=== PATIENT | male | born 1955 | race Caucasian/White ===

== ENCOUNTER 2018-09-10 00:28 | Inpatient (IN) | payer OTHER ==
[2018-09-10] MEDS ORDERED: Sodium Chloride 0.9% 1,000 ML ONE (01:09)
[2018-09-10 01:13] LABS: BASO % 0.6 % (0.0-2.0); EOS # 0.2 K/uL (0.0-0.7); EOS % 2.2 % (0.0-4.0); HEMOGLOBIN 12.7 g/dL (12.0-18.0); LYMPH % 13.2 % (20.0-40.0); MEAN CELL VOLUME 93.4 fL (80.0-94.0); MEAN CORPUSCULAR HEMOGLOBIN 30.7 pg (27.0-31.0); MEAN CORPUSCULAR HGB CONC 32.9 g/dL (33.0-37.0); MEAN PLATELET VOLUME 8.1 fL (7.2-11.7); MONO # 0.5 K/uL (0.0-0.8); MONO % 6.7 % (0.0-10.0); NEUT # 5.9 K/uL (1.8-7.0); NEUT % 77.3 % (50.0-75.0); RBC 4.13 Mil/uL (4.40-5.90); RED CELL DISTRIBUTION WIDTH 13.5 % (11.5-14.5); WHITE BLOOD COUNT 7.6 K/uL (4.8-10.8)
[2018-09-10] MEDS: Sodium Chloride 0.9% 1,000 ML IV SCH ×4 (01:14→21:29)
[2018-09-10 01:20] LABS: ALB/GLOB RATIO 1.4 (1.0-2.1); ALBUMIN 4.3 g/dL (3.5-5.0); ALT/SGPT 12 U/L (21-72); AST/SGOT 29 U/L (17-59); BLOOD UREA NITROGEN 22 mg/dL (9-20); CALCIUM 9.2 mg/dl (8.6-10.4); GFR NON-AFRICAN AMERICAN > 60; LIPASE 69 U/L (23-300)
--- NOTE | 2018-09-10 01:23 | C.PDOC ---
History Of Present Illness 63 year old male w/ hx of pleural effusion, p/w vomiting. Pt notes vomiting x4 times today. He also notes that 1 week prior he started having flashing lights in both of his eyes. He notes that the flashing light resolved on its own after lasting 1-2 seconds. He notes that the last time he had the same flashing light he had a pleural effusion which was drained which resolved his symptoms. He notes these flashing lights even when he closes his eyes. No temporal pain or decreased vision field or eye pain. No loss of visual acuity. No eye medications per pt. He also notes that he had a spinal tap which did not show any findings. He notes the same exact symptoms and is concerned that he could have a reoccurrence of his pleural effusion. He denies any abdominal pain, chest pain or shortness of breath. No trauma or fall. No night sweats, fevers, or chills. No cough. Time Seen by Provider: 09/10/18 00:41 Chief Complaint (Nursing): GI Problem Past Medical History Vital Signs: Last Vital Signs Temp 97.8 F 09/10/18 00:39 Pulse 75 09/10/18 00:39 Resp 16 09/10/18 00:39 BP 144/91 H 09/10/18 00:39 Pulse Ox 97 09/10/18 00:39 - Medical History PMH: Migraine Family History: States: Unknown Family Hx - Social History Hx Alcohol Use: No Hx Substance Use: No - Immunization History Hx Tetanus Toxoid Vaccination: Yes Hx Influenza Vaccination: Yes Hx Pneumococcal Vaccination: Yes Review Of Systems Constitutional: Negative for: Fever, Chills, Sweats, Weakness, Malaise Eyes: Positive for: Other (flashing lights 1-2 times a day for 1-2 seconds). Negative for: Pain, Vision Change, Conjunctivae Inflammation, Eyelid Inflammation ENT: Negative for: Ear Pain, Ear Discharge, Nose Pain, Nose Congestion Cardiovascular: Negative for: Chest Pain, Palpitations, Orthopnea Respiratory: Negative for: Cough, Shortness of Breath, Hemoptysis, Pleuritic Pain, Sputum, Wheezing Gastrointestinal: Positive for: Nausea, Vomiting. Negative for: Abdominal Pain, Diarrhea, Constipation, Melena, Hematochezia, Hematemesis, Rectal Pain Genitourinary: Negative for: Dysuria, Frequency, Incontinence, Hematuria Musculoskeletal: Negative for: Neck Pain, Shoulder Pain, Arm Pain Skin: Negative for: Rash, Lesions, Jaundice Neurological: Positive for: Headache (mild, not worst of life, not sudden in onset, associated with flashing lights when it occurs). Negative for: Weakness, Numbness, Incoordination, Change in Speech, Confusion, Seizures, Altered Mental Status Psych: Negative for: Anxiety Physical Exam - Physical Exam Appears: Well, Non-toxic, No Acute Distress Skin: Normal Color, Warm, Dry Head: Atraumatic, Normacephalic, No Tenderness, No Swelling, No Abrasion, No Laceration Eye(s): bilateral: Normal Inspection, PERRL, EOMI Ear(s): Bilateral: Normal Nose: Normal, No Flaring, No Discharge, No Epistaxis, No Deformity, No Septal Hematoma Oral Mucosa: Moist Tongue: Normal Appearing, No Swelling, No Lesions, No Bite Lips: Normal Appearing Teeth: No Caries, No Edentulous Gingiva: Normal Appearing Throat: Normal, No Erythema, No Exudate Neck: Normal, Normal ROM, Supple, Other (no meningeal signs) Chest: Symmetrical, No Deformity, No Tenderness Cardiovascular: Rhythm Regular Respiratory: Decreased Breath Sounds (R base), No Accessory Muscle Use, No Rales, No Rhonchi, No Stridor, No Wheezing, No Plerual Rub Gastrointestinal/Abdominal: Normal Exam Back: Normal Inspection, No CVA Tenderness, No Vertebral Tenderness Male Genital: Normal Inspection Extremity: Normal ROM, No Tenderness, No Pedal Edema Extremity: Bilateral: Atraumatic Neurological/Psych: Oriented x3, Normal Speech, Normal Cognition, Normal Cranial Nerves, No Cerebellar Signs, Normal Motor, Normal Sensation Gait: Steady Other Neurological Findings: No Facial Palsy Extremity: Right: No Drift, Left: No Drift ED Course And Treatment - Laboratory Results Result Diagrams: 09/10/18 01:03 09/10/18 01:03 O2 Sat by Pulse Oximetry: 97 Medical Decision Making Medical Decision Makin yr old male w/ hx of pleural effusion p/w flashing lights, headache (not worst of life or sudden in onset). Neuro exam unremarkable. No abdominal complaints. Non-ttp. ?atypical migraine vs tension migraine. No temporal pain. No loss of field of vision. No eye pain. No eye trauma or new eye meds. No visual acuity change. PERRLA, EOMI. No neuro deficits noted on exam. Pending imaging and labs. 0154 Labs largely unremarkable pending imaging CT Head w/o Contrast: IMPRESSION: Normal unenhanced CT scan of the brain. 1.9x1.1 cm cystic area of the pituitary gland with expansion of the sella and extension to the supra-sellar cistern. Findings can be secondary to an empty sella turcica. Differential diagnosis would include a cystic pituitary macroadenoma. This can be better evaluated by means of a dedicated MRI of the brain/sella with intravenous administration of gadolinium on elective basis. There is no evidence of associated acute brain changes or pituitary hemorrhage. EK, NSR. No stemi CXR w/ moderate R sided pleural effusion 0245 Neuro exam, abd exam remains unremarkable Will reccomend obs for R sided pleural effusion. pt agreeable to plan. 0303 appreciate consult w/ Dr. Cheney: to admit to tele Pt agreeable to plan, in NAD. Disposition - Disposition Referrals: [facility] [Outside] [facility] [Outside] [facility] [Outside] Edwin Albert MD [Staff Provider] - Disposition: HOME/ ROUTINE Disposition Time: 02:48 Condition: GOOD Additional Instructions: FOLLOW UP WITH NEUROLOGY REGARDING YOUR CT FINDINGS. RETURN IF WORSENED AND IF ANY OTHER ISSUES RABIA SHERIFF, thank you for letting us take care of you today. Your provider was Emeterio Diaz and you were treated for VOMITING. The emergency medical care you received today was directed at your acute symptoms. If you were prescribed any medication, please fill it and take as directed. It may take several days for your symptoms to resolve. Return to the Emergency Department if your symptoms worsen, do not improve, or if you have any other problems. Please contact your doctor or call one of the physicians/clinics you have been referred to that are listed on the Patient Visit Information form that is included in your discharge packet. Bring any paperwork you were given at discharge with you along with any medications you are taking to your follow up visit. Our treatment cannot replace ongoing medical care by a primary care provider outside of the emergency department. Thank you for allowing the [facility] team to be part of your care today. If you had an X-Ray or CT scan: A Radiologist will review the ED reading if any change in treatment is needed we will contact you. If you had a blood, urine, or wound culture: It will take several days for the results, if any change in treatment is needed we will contact you. If you had an STI test: It will take 48 hours for the results. Please call after 1 week if you have not heard back. Forms: [facility] ([facility]) - Clinical Impression Clinical Impression: Cyst of pituitary gland, Headache, Pleural effusion
[2018-09-10 01:27] LABS: VENOUS BLOOD GAS BASE EXCESS 1.5 mmol/L (0.0-2.0); VENOUS BLOOD GAS PCO2 54 mmHg (40-60); VENOUS BLOOD GAS PO2 29 mm/Hg (30-55); VENOUS BLOOD PH 7.33 (7.32-7.43)
[2018-09-10] MEDS ORDERED: Azithromycin 500 MG in Sodium Chloride 0.9% 250 ML IVPB STA (03:05)
--- NOTE | 2018-09-10 09:51 | CP.PCM.PN ---
Subjective - Date & Time of Evaluation Date of Evaluation: 09/10/18 Time of Evaluation: 09:51 - Subjective Subjective: H&P dictated #[id number] Objective - Vital Signs/Intake and Output Vital Signs (last 24 hours): Temp Pulse Resp BP Pulse Ox 98.1 F 63 20 116/72 95 09/10/18 07:00 09/10/18 07:00 09/10/18 07:00 09/10/18 07:00 09/10/18 07:00 - Medications Medications: Current Medications Sodium Chloride (Sodium Chloride 0.9%) 1,000 mls @ 100 mls/hr IV .Q10H [facility] Last Admin: 09/10/18 04:55 Dose: 100 mls/hr - Labs Labs: 09/10/18 01:03 09/10/18 01:03
--- NOTE | 2018-09-10 10:43 | CT ---
Date of service: 09/10/2018 PROCEDURE: CT HEAD WITHOUT CONTRAST. HISTORY: Headache COMPARISON: None available. TECHNIQUE: Axial computed tomography images were obtained through the head/brain without intravenous contrast. Radiation dose: Total exam DLP = 1035.32 mGy-cm. This CT exam was performed using one or more of the following dose reduction techniques: Automated exposure control, adjustment of the mA and/or kV according to patient size, and/or use of iterative reconstruction technique. FINDINGS: HEMORRHAGE: No acute parenchymal, subarachnoid nor extra-axial hemorrhage. BRAIN: No evidence of large acute infarct. There is an elliptical approximately 17.1 x 10.5 mm shaped cystic lesion which occupies the anterior aspect of the sella turcica. There appears to be expansile changes of the sella turcica as well turcica. This cystic lesion also appears to elevate superiorly displaces the optic chiasm.. Findings are of uncertain etiology however consider cystic adenoma Rathke's cleft cyst or possibly craniopharyngioma. Follow-up of pre and post-contrast MRI of the brain recommended for further evaluation there an 18.6 x 12.2 mm elliptical shaped calcification seen in the right parasagittal posterior occipito parietal watershed zone that may simply represent a dural based calcification however possibility of a calcified meningioma not completely excluded VENTRICLES: No obstructive hydrocephalus. CALVARIUM: Unremarkable. PARANASAL SINUSES: Mucoperiosteal inflammatory changes within the ethmoid air complex extending superiorly into the frontal sinus noted. MASTOID AIR CELLS: The there is partial opacification of the left and to a lesser degree right mastoid air complexes. OTHER FINDINGS: None. IMPRESSION: No evidence of large acute infarct. There is an elliptical approximately 17.1 x 10.5 mm shaped cystic lesion which occupies the anterior aspect of the sella turcica. There appears to be expansile changes of the sella turcica as well turcica. This cystic lesion also appears to elevate superiorly displaces the optic chiasm.. Findings are of uncertain etiology however consider cystic adenoma Rathke's cleft cyst or possibly craniopharyngioma. Follow-up of pre and post-contrast MRI of the brain recommended for further evaluation there an 18.6 x 12.2 mm elliptical shaped calcification seen in the right parasagittal posterior occipito parietal watershed zone that may simply represent a dural based calcification however possibility of a calcified meningioma not completely excluded
--- NOTE | 2018-09-10 15:36 | RAD ---
Date of service: 09/10/2018 HISTORY: History of pleural effusion COMPARISON: No prior. TECHNIQUE: Chest PA and lateral FINDINGS: LUNGS: There is a semi lunar shaped opacity the right CP angle region and lateral lower right hemithorax could represent a effusion with loculated component. Suspect mild right basilar atelectasis. Mild biapical pleural thickening. PLEURA: As above. No pneumothorax apparent. CARDIOVASCULAR: No aortic atherosclerotic calcification present. Aorta appears ectatic and uncoiled. Normal cardiac size. No pulmonary vascular congestion. OSSEOUS STRUCTURES: No significant abnormalities. VISUALIZED UPPER ABDOMEN: Normal. OTHER FINDINGS: None. IMPRESSION: There is a semi lunar shaped opacity the right CP angle region and lateral lower right hemithorax could represent a effusion with loculated component. Suspect mild right basilar atelectasis. Mild biapical pleural thickening
--- NOTE | 2018-09-10 16:31 | CP.PCM.CON ---
History of Present Illness - History of Present Illness History of Present Illness: Reason for consultation: Pleural effusion 63-year-old male with history of pulmonary TB and pleural effusion status post thoracentesis and treated for 9 months in 1994 presented with vomiting and flashing lights in both of his eyes. Denies shortness of breath, denies cough, denies fever chills, denies night sweats, denies weight loss. Review of Systems - Review of Systems All systems: reviewed and no additional remarkable complaints except (Vomiting) Past Patient History - Past Social History Smoking Status: Former Smoker - PULMONARY Other/Comment: pleural effusion - NEUROLOGICAL Hx Migraine: Yes - HEENT Hx Cataracts: Yes (RIGHT EYE -NO SURGERY YET) Hx Sinusitis: Yes Other/Comment: LEFT EYE-LAZY EYE - MUSCULOSKELETAL/RHEUMATOLOGICAL Hx Falls: No - PSYCHIATRIC Hx Substance Use: No - SURGICAL HISTORY Other/Comment: nasal septal sx - ANESTHESIA Hx Anesthesia: Yes Hx Anesthesia Reactions: No Meds Allergies/Adverse Reactions: Allergies Allergy/AdvReac Type Severity Reaction Status Date / Time No Known Allergies Allergy Unverified 09/10/18 00:44 - Medications Medications: Current Medications Heparin Sodium (Porcine) (Heparin) 5,000 units SC Q12 [facility] Last Admin: 09/10/18 11:00 Dose: 5,000 units Sodium Chloride (Sodium Chloride 0.9%) 1,000 mls @ 100 mls/hr IV .Q10H [facility] Last Admin: 09/10/18 04:55 Dose: 100 mls/hr Ondansetron HCl (Zofran Inj) 4 mg IVP ONCE ONE Stop: 09/10/18 16:31 Physical Exam - Head Exam Head Exam: ATRAUMATIC, NORMOCEPHALIC - ENT Exam ENT Exam: Mucous Membranes Moist - Neck Exam Neck exam: Positive for: Normal Inspection - Respiratory Exam Respiratory Exam: Decreased Breath Sounds - Cardiovascular Exam Cardiovascular Exam: REGULAR RHYTHM - GI/Abdominal Exam GI & Abdominal Exam: Normal Bowel Sounds, Soft - Extremities Exam Extremities exam: Positive for: normal inspection - Neurological Exam Neurological exam: Alert, Oriented x3 Results - Vital Signs Recent Vital Signs: Last Vital Signs Temp 98.1 F 09/10/18 07:00 Pulse 63 09/10/18 07:00 Resp 20 09/10/18 07:00 BP 116/72 09/10/18 07:00 Pulse Ox 95 09/10/18 07:00 - Labs Result Diagrams: 09/10/18 01:03 09/10/18 01:03 Labs: Laboratory Results - last 24 hr 09/10/18 09/10/18 09/10/18 01:03 01:03 01:22 WBC 7.6 RBC 4.13 L Hgb 12.7 Hct 38.6 MCV 93.4 MCH 30.7 MCHC 32.9 L RDW 13.5 Plt Count 235 MPV 8.1 Neut % (Auto) 77.3 H Lymph % (Auto) 13.2 L Villalba % (Auto) 6.7 Eos % (Auto) 2.2 Baso % (Auto) 0.6 Neut # (Auto) 5.9 Lymph # (Auto) 1.0 Villalba # (Auto) 0.5 Eos # (Auto) 0.2 Baso # (Auto) 0.0 pO2 29 L VBG pH 7.33 VBG pCO2 54 VBG HCO3 24.8 VBG Total CO2 30.2 H VBG O2 Sat (Calc) 58.4 VBG Base Excess 1.5 VBG Potassium 3.7 Glucose 105 Lactate 1.2 Sodium 137 138.0 Potassium 4.1 Chloride 104 107.0 Carbon Dioxide 27 Anion Gap 10 BUN 22 H Creatinine 0.8 Est GFR ( Amer) > 60 Est GFR (Non-Af Amer) > 60 Random Glucose 112 H Calcium 9.2 Magnesium 1.9 Total Bilirubin 0.6 AST 29 ALT 12 L Alkaline Phosphatase 75 Total Protein 7.5 Albumin 4.3 Globulin 3.2 Albumin/Globulin Ratio 1.4 Lipase 69 Venous Blood Potassium 3.7 Assessment & Plan (1) Pleural effusion Status: Acute Comment: Patient with history of pulmonary TB and thoracentesis in 1994 treated with 4 antituberculous medications for 9 months in [facility] admitted with vomiting. Patient denies shortness of breath, denies cough, denies fever chills, denies night sweats, denies weight loss. Loculated pleural effusion most likely chronic. CAT scan of the chest. Patient advised to bring old records
--- NOTE | 2018-09-11 02:21 | HP ---
CHIEF COMPLAINT: One-day history of nausea, vomiting x2 and seeing flashes of light over the past one week to 10 days. HISTORY OF PRESENT ILLNESS: Mr. Vasquez is a 63-year-old male with a past medical history of tuberculosis with right-sided pleural effusion, status post thoracentesis in 1994, was on TB meds for nine months, completed his course, underwent a nasal septal surgery at younger age, having migraine headaches intermittently, with a prior history of seeing flashes of light in both the eyes with frontal and parietal headaches in 1994 when he was found to have fluid collection in the occipital region, was given medications for three months and was drained. 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 He underwent MRI of the chest, abdomen and pelvis in 2015 and he was told that there was no pleural effusion. He has been in his usual state of health until the day before yesterday. He woke up yesterday not feeling well, with the symptoms of feeling nauseous and did not have any vomiting in the morning. He had also decreased appetite all day, and he went to work, unable to eat his lunch at the workplace. He came home around 7:30 and had eaten the leftover food from lunch, around 7:30 p.m., and he started feeling more nauseous after 3 hours and had two episodes of vomiting which was bilious and had a bowel movement at the same time. He felt better after this. He also complains of seeing flashes of bright light with colors in the left corner. These flashes of light, he sees about 30 seconds to 1 minute, come in group within a frame. After 1 minute, it slowly subside and he has been having these episodes about 10-12 times in a day. They are increasing in numbers relatively over the past 8 to 10 days, started on 09/04/2018 as per him. In the past also when he had these symptoms, he was found to have pleural effusion and fluid in his occipital region. He was concerned and he came into the emergency room for further evaluation. When I examined him, he denies any headache or dizziness. Denies any chest pain, shortness of breath or wheezing. Denies any nausea or vomiting. Has had good breakfast this morning. Denies any abdominal pain, diarrhea or constipation. Denies any urinary complains. Denies any leg pain or leg cramps. Denies any other neurologic symptoms. He has still been seeing flashes of light even while I was talking to him. He claimed that he had those flashes of light he saw. PAST MEDICAL HISTORY: As described, prior treated TB, right-sided pleural effusion, occipital region fluid collection, questionable etiology. PAST SURGICAL HISTORY: Underwent deviated nasal septal surgery. FAMILY HISTORY: Coronary artery disease in mother. Father has diabetes. His mother, father and all the siblings have diabetes. Sister has brain cancer. Brother has tongue cancer. PERSONAL HISTORY: He is , having two sons. 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 SOCIAL HISTORY: He is an ex-smoker, quit smoking in 1994, smoked three to four cigarettes per day for 10 years. Denies any alcohol or drug abuse. ALLERGIES: NO KNOWN DRUG ALLERGIES. MEDICATIONS: He does not take any medication. REVIEW OF SYSTEMS: As described in the history of present illness. All other systems reviewed and were found to be negative. PHYSICAL EXAMINATION: GENERAL: A middle-aged male, lying in bed in no acute distress. VITAL SIGNS: Blood pressure 116/72, pulse 63, respirations 20, temperature 98.1 degrees Fahrenheit, O2 sat 95% on room air. HEENT: Pupils are equal, round and reactive to light and accommodation. Extraocular muscles are intact. No icterus. No pallor. No oral thrush. No pharyngeal congestion. NECK: Supple. No JVD. LUNGS: Bilateral vesicular breath sounds. No wheezing. No rhonchi. CARDIOVASCULAR SYSTEM: S1 and S2 present. Regular. ABDOMEN: Soft and nontender. Bowel sounds present. No guarding. No rigidity. No rebound tenderness noted. CENTRAL NERVOUS SYSTEM: Alert, awake and oriented x3. No focal deficits noted. EXTREMITIES: No edema. Palpable peripheral pulses. LABORATORY DATA: Labs done from the ED: WBC 7.6, hemoglobin 12.7, hematocrit 38.6, platelet 235. Sodium 137, potassium 4.1, chloride 104, bicarb 27, BUN 22, creatinine 0.8, glucose 112, calcium 9.2, magnesium 1.9, total bilirubin 0.6, AST 29, ALT 12, alkaline phosphatase 75, total protein 7.5, albumin 4.3, globulin 3.2, lipase 69. Chest x-ray consistent with questionable effusion with a loculated component, right basilar atelectasis, mild basal pleural thickening. CT of head consistent with an elliptical 17.1 x 10.5 mm shaped cystic lesion which occupies the anterior aspect of the sella turcica. There appears to be extensile changes of the sella turcica as well. The cystic lesion also appears to elevate superiorly, displaces the optic chiasm. Findings are of uncertain etiology; however, consider cystic adenoma, Rathke's cleft cyst, possibly craniopharyngioma. There is an 18.6 x 12.2 mm elliptical-shaped calcification seen in the right parasagittal posterior occipitoparietal watershed zone that may simply represent a dural-based calcification; possibility of a calcified meningioma not completely excluded. EKG consistent with a normal sinus rhythm at 67 beats per minute, possible left atrial enlargement. ASSESSMENT AND PLAN: A middle-aged male with a prior history of treated tuberculosis with right-sided pleural effusion, status post thoracentesis about 25 years ago with questionable fluid collection in the occipital region, associated with flashes of light, came in with a one-day history of nausea and vomiting x2 which completely resolved by this morning. The patient is being admitted for abnormal chest x-ray and abnormal CT of the head. 1. One-day history of nausea with vomiting, possible viral gastroenteritis. Now symptoms resolved. 2. Right-sided pleural effusion versus loculated effusion. Abnormal CT of head with questionable calcified meningioma and questionable cystic lesion in the sella turcica, rule out cystic adenoma. 3. Visual abnormality, seeing flashes of light, questionable etiology. PLAN: The patient is being admitted to telemetry. The patient received Rocephin and Zithromax in the emergency room. The patient is afebrile and no white count. We will hold the antibiotics. We will do CT scan of the chest to further differentiate the right lung findings on the chest x-ray. We will obtain pulmonary evaluation. We will obtain ophthalmology evaluation and also request neurology and endocrinology evaluation for abnormal CT of head, do neuro checks. We will give gentle hydration. I advised the patient to bring his reports from home for comparison. We will give subcu heparin for DVT prophylaxis. We will add further recommendation as his clinical course progresses. Jenae Rodriguez MD
[2018-09-11] MEDS: Sodium Chloride 0.9% 1,000 ML IV SCH ×3 (03:07→10:59)
--- NOTE | 2018-09-11 07:00 | CON ---
DATE: 09/10/2018 LOCATION: Room 661. HISTORY OF PRESENT ILLNESS: This is a 63-year-old male with known history of pulmonary tuberculosis and pleural effusion admitted here with sudden onset of visual changes and supervening nausea, dyspepsia and vomiting who is being referred now for endocrine evaluation because of an incidental finding of a pituitary lesion from the CAT scan of the head as undertaken thereof. PAST MEDICAL HISTORY: History of hypertension and dyslipidemia, history of pulmonary tuberculosis and previously underwent thoracentesis for a pleural effusion with 9 months of therapy as given in 1994, history of cataracts in the right eye and is being followed closely by his eye doctors. FAMILY HISTORY: Positive for hypertension and heart disease. SOCIAL HISTORY: The patient is a former smoker. He has a supportive family otherwise. REVIEW OF SYSTEMS: Admits to sudden visual changes with flashing lights, but no actual visual impairment as noted thereof, also with episodic headaches with dizziness and lightheadedness. No chest pains, but admits to episodic shortness of breath, especially with exertion. His oral intake has been variable with nausea, dyspepsia, episodic vomiting episodes with vague upper abdominal pain, no alterations of bowel and urinary patterns. PHYSICAL EXAMINATION: GENERAL: This is an average-built male, in no apparent distress with a blood pressure of 140/80, pulse of 70 beats per minute and regular, temperature 98, respirations 20. Height is 6 feet 1 inch, weight is 148 pounds. HEENT: Head: Normocephalic. Eyes: Anicteric with pink conjunctivae. Funduscopy is not possible at this time. Ears, nose, and throat otherwise normal. NECK: Supple. Thyroid gland is normal sized. No carotid bruits or any cervical adenopathy. CARDIOPULMONARY: Some adynamic precordium. S1, S2 is rapid and regular. LUNGS: Clear to auscultation. ABDOMEN: Flat, soft with positive bowel sounds. EXTREMITIES: No peripheral edema. Pulses are +2 bilaterally. LABORATORY DATA: His chemistries showed a BUN of 22, sodium 137, potassium 4.1, chloride 104, CO2 of 27, glucose 112, and creatinine 0.8. The CAT scan of the head showed a 17 x 10 mm cystic lesion in the sella turcica noted in the anterior aspect. There is also an 18 x 12 mm calcification in the right parasagittal area as noted. ASSESSMENT: This is a 63-year-old male with a pituitary lesion and recent visual changes and the possibility of a pituitary tumor has to be excluded at this time. PLAN OF MANAGEMENT: I would highly recommend further clarification of the aforementioned CAT scan findings with an MRI of the brain with and without contrast to enhance the pituitary lesion as noted above. In the meantime, we will obtain a comprehensive hormonal profile to include the prolactin level with a T4, TSH and a serum cortisol and ACTH level as ordered thereof. We will obtain serial chemistries and supplement accordingly as needed. We will highly recommend also a neurological evaluation for the aforementioned lesion, especially with the size as mentioned above. We will follow. Melony Lea MD
[2018-09-11 08:57] LABS: FSH 5.4 mIU/mL; PROLACTIN 9.5 ng/mL (3.7-17.9)
--- NOTE | 2018-09-11 11:44 | CP.PCM.PN ---
Subjective - Date & Time of Evaluation Date of Evaluation: 09/11/18 Time of Evaluation: 11:44 - Subjective Subjective: Pulmonary follow up, Covering Dr Castle The Patient was seen and examined at the bedside, Medical records reviewed, and management issues were discussed and formulated with the house staff. Events reviewed Objective - Vital Signs/Intake and Output Vital Signs (last 24 hours): Temp Pulse Resp BP Pulse Ox 98.0 F 58 L 20 114/64 95 09/11/18 07:00 09/11/18 07:40 09/11/18 07:00 09/11/18 07:00 09/11/18 07:00 - Medications Medications: Current Medications Acetaminophen (Tylenol 325mg Tab) 650 mg PO Q6 PRN PRN Reason: Headache Heparin Sodium (Porcine) (Heparin) 5,000 units SC Q12 [facility] Last Admin: 09/11/18 10:59 Dose: Not Given Sodium Chloride (Sodium Chloride 0.9%) 1,000 mls @ 100 mls/hr IV .Q10H [facility] Last Admin: 09/11/18 10:59 Dose: 100 mls/hr - Labs Labs: 09/10/18 01:03 09/10/18 01:03
--- NOTE | 2018-09-11 12:44 | CP.PCM.PN ---
Subjective - Date & Time of Evaluation Date of Evaluation: 09/11/18 Time of Evaluation: 12:44 - Subjective Subjective: Progress note dictated #[id number] Objective - Vital Signs/Intake and Output Vital Signs (last 24 hours): Temp Pulse Resp BP Pulse Ox 98.0 F 58 L 20 114/64 95 09/11/18 07:00 09/11/18 07:40 09/11/18 07:00 09/11/18 07:00 09/11/18 07:00 - Medications Medications: Current Medications Acetaminophen (Tylenol 325mg Tab) 650 mg PO Q6 PRN PRN Reason: Headache Heparin Sodium (Porcine) (Heparin) 5,000 units SC Q12 [facility] Last Admin: 09/11/18 10:59 Dose: Not Given Sodium Chloride (Sodium Chloride 0.9%) 1,000 mls @ 100 mls/hr IV .Q10H [facility] Last Admin: 09/11/18 10:59 Dose: 100 mls/hr - Labs Labs: 09/10/18 01:03 09/10/18 01:03
[2018-09-11] MEDS ORDERED: Iohexol 300 100 ML IJ ONE (12:49)
--- NOTE | 2018-09-11 21:37 | PN ---
DATE: 09/11/2018 ENDOCRINOLOGY FOLLOWUP NOTE LOCATION: Room 661. SUBJECTIVE: This is a 63-year-old male with progressive shortness of breath and generalized body weakness and evaluated to have a persistent right pleural effusion and is now being followed closely for metabolic management. He had an incidental finding of a pituitary lesion by CAT scan of the head as noted. He remains clinically and biochemically euthyroid and euadrenal at this time. His hormonal profile showed a prolactin level of 9.5 with a TSH of 1.18 and a T4 of 8.6 as noted. His cortisol level is 15.2 with a luteinizing hormone of 1.2 and an FSH of 5.4. He remains clinically and biochemically euadrenal and euthyroid at this time as noted. The pituitary lesion will need to be explored further by an MRI of the pituitary area with contrast as recommended, thereof. In the meantime, there is no indication for any kind of hormonal pharmacotherapy at this time. We will obtain serial chemistries and supplement accordingly as needed. We will follow. Melony Lea MD
--- NOTE | 2018-09-11 22:36 | PN ---
DATE: 09/11/2018 SUBJECTIVE: The patient is seen and examined at bedside. The patient still complains of occipital headache, nausea improved, tolerating p.o. feeds. Denies any shortness of breath or wheezing. All other systems reviewed and were found to be negative. PHYSICAL EXAMINATION: GENERAL: A middle-aged male, lying in bed, in no acute distress. VITAL SIGNS: Blood pressure 121/65, pulse 74, respirations 20, temperature 98.1 degrees Fahrenheit, O2 sat is 95% on room air. HEENT: Pupils equal, round, reacting to light and accommodation. Extraocular muscles intact. No icterus. No pallor. No oral thrush. No pharyngeal congestion. NECK: Supple. No JVD. LUNGS: Bilateral vesicular breath sounds. No wheezing. No rhonchi. CARDIOVASCULAR: S1 and S2 present, regular. ABDOMEN: Soft and nontender. Bowel sounds present. No guarding. No rigidity. No rebound tenderness noted. CENTRAL NERVOUS SYSTEM: Alert, awake, oriented x3. No focal deficits noted. EXTREMITIES: No edema. Palpable peripheral pulses. MEDICATIONS: Include Tylenol as needed, heparin for DVT prophylaxis, normal saline at 100 mL an hour, and Motrin as needed. LABORATORY DATA: TSH is 1.18, LH is 1.2, prolactin is 9.5, cortisol is 15.2. ASSESSMENT AND PLAN: A middle-aged male with history of right pleural effusion, secondary to tuberculosis, status post thoracentesis and treated with four-drug regimen for 9 months, status post acute gastroenteritis probably viral etiology and right-sided pleural effusion, possible loculated effusion, visual abnormalities with pituitary lesion on the CT scan and questionable calcified meningioma versus other etiologies. The patient is tolerating p.o. feeds for CT scan of the chest and for MRI of the brain with and without gadolinium to further delineate the pituitary lesion. Pulmonary and Endocrinology consults appreciated. Awaiting Neurology evaluation. Continue with current medication. We will advance diet as tolerated. Discussed with the patient and the patient's son who is at bedside at length and reviewed. Jenae Rodriguez MD
[2018-09-12] MEDS: Sodium Chloride 0.9% 1,000 ML IV SCH ×3 (03:06→22:00)
--- NOTE | 2018-09-12 07:08 | CP.PCM.PN ---
Subjective - Date & Time of Evaluation Date of Evaluation: 09/12/18 Time of Evaluation: 06:40 - Subjective Subjective: Aram Bear D.O. PGY-3, Internal Medicine Resident, Endocrinology Progress Note 63 year old male with a PMH of TB s/p treatment and pleural effusions who presents for vision changes. 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 Patient was seen and examined at bedside. No acute complaints. Describes vision changes as flashing lights. Objective - Vital Signs/Intake and Output Vital Signs (last 24 hours): Temp Pulse Resp BP Pulse Ox 98.5 F 54 L 20 90/61 L 95 09/11/18 23:10 09/12/18 03:49 09/11/18 23:10 09/11/18 23:10 09/11/18 23:10 - Medications Medications: Current Medications Acetaminophen (Tylenol 325mg Tab) 650 mg PO Q6 PRN PRN Reason: Headache Last Admin: 09/12/18 04:13 Dose: 650 mg Heparin Sodium (Porcine) (Heparin) 5,000 units SC Q12 [facility] Last Admin: 09/11/18 10:59 Dose: Not Given Sodium Chloride (Sodium Chloride 0.9%) 1,000 mls @ 100 mls/hr IV .Q10H [facility] Last Admin: 09/12/18 03:06 Dose: 100 mls/hr Ibuprofen (Motrin Tab) 400 mg PO Q8H PRN PRN Reason: Headache Last Admin: 09/11/18 14:35 Dose: 400 mg - Labs Labs: 09/10/18 01:03 09/10/18 01:03 - Constitutional Appears: Non-toxic, No Acute Distress - Head Exam Head Exam: ATRAUMATIC, NORMOCEPHALIC - Eye Exam Eye Exam: EOMI. absent: Scleral icterus - ENT Exam ENT Exam: Mucous Membranes Moist - Neck Exam Neck Exam: Normal Inspection - Respiratory Exam Respiratory Exam: absent: Rales - Cardiovascular Exam Cardiovascular Exam: +S1, +S2 - GI/Abdominal Exam GI & Abdominal Exam: Soft - Neurological Exam Neurological Exam: Alert, Awake - Skin Skin Exam: Dry, Warm Assessment and Plan - Assessment and Plan (Free Text) Assessment: 63 year old male with a PMH of TB s/p treatment and pleural effusions who presents for vision changes. 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 Plan: 1. Incidental pituitary cyst TSH, FSH, LH, prolactin, and cortisol all within normal limits Euadrenal and euthyroid Pending MRI evaluation of cyst to further elucidate etiology We will follow Patient was seen and examined and case to be discussed with attending physician.
--- NOTE | 2018-09-12 09:09 | CP.PCM.CON ---
History of Present Illness - History of Present Illness History of Present Illness: CONSULT DICTATED RECURRENT STEROTYPIAL EVENTS FROM 10/03/2018 ATLEAST 3/DAY VISUAL SEIZURES - FROM RIGHT OCCIPITAL MASS /?? CALCIFICATION I DOUBT MIGRAINE MRI EEG WILL START HIM ON LAMICTAL Past Patient History - Past Social History Smoking Status: Former Smoker - PULMONARY Other/Comment: pleural effusion - NEUROLOGICAL Hx Migraine: Yes - HEENT Hx Cataracts: Yes (RIGHT EYE -NO SURGERY YET) Hx Sinusitis: Yes Other/Comment: LEFT EYE-LAZY EYE - MUSCULOSKELETAL/RHEUMATOLOGICAL Hx Falls: No - PSYCHIATRIC Hx Substance Use: No - SURGICAL HISTORY Other/Comment: nasal septal sx - ANESTHESIA Hx Anesthesia: Yes Hx Anesthesia Reactions: No Meds Allergies/Adverse Reactions: Allergies Allergy/AdvReac Type Severity Reaction Status Date / Time No Known Allergies Allergy Unverified 09/10/18 00:44 - Medications Medications: Current Medications Acetaminophen (Tylenol 325mg Tab) 650 mg PO Q6 PRN PRN Reason: Headache Last Admin: 09/12/18 04:13 Dose: 650 mg Heparin Sodium (Porcine) (Heparin) 5,000 units SC Q12 [facility] Last Admin: 09/11/18 10:59 Dose: Not Given Sodium Chloride (Sodium Chloride 0.9%) 1,000 mls @ 100 mls/hr IV .Q10H [facility] Last Admin: 09/12/18 03:06 Dose: 100 mls/hr Ibuprofen (Motrin Tab) 400 mg PO Q8H PRN PRN Reason: Headache Last Admin: 09/11/18 14:35 Dose: 400 mg Lamotrigine (Lamictal) 25 mg PO BID [facility] Lorazepam (Ativan) 2 mg IVP ONCE PRN PRN Reason: Excess sedation Results - Vital Signs Recent Vital Signs: Last Vital Signs Temp 98.1 F 09/12/18 07:00 Pulse 55 L 09/12/18 08:06 Resp 20 09/12/18 07:00 BP 112/73 09/12/18 07:00 Pulse Ox 97 09/12/18 07:00 - Labs Result Diagrams: 09/10/18 01:03 09/10/18 01:03 Labs: Laboratory Results - last 24 hr 09/11/18 08:12 TSH 3rd Generation 1.18
--- NOTE | 2018-09-12 11:27 | CP.PCM.PN ---
Subjective - Date & Time of Evaluation Date of Evaluation: 09/12/18 Time of Evaluation: 11:27 - Subjective Subjective: Progress note dictated #[id number] Objective - Vital Signs/Intake and Output Vital Signs (last 24 hours): Temp Pulse Resp BP Pulse Ox 98.1 F 55 L 20 112/73 97 09/12/18 07:00 09/12/18 08:06 09/12/18 07:00 09/12/18 07:00 09/12/18 07:00 - Medications Medications: Current Medications Acetaminophen (Tylenol 325mg Tab) 650 mg PO Q6 PRN PRN Reason: Headache Last Admin: 09/12/18 04:13 Dose: 650 mg Heparin Sodium (Porcine) (Heparin) 5,000 units SC Q12 [facility] Last Admin: 09/12/18 09:48 Dose: Not Given Sodium Chloride (Sodium Chloride 0.9%) 1,000 mls @ 100 mls/hr IV .Q10H [facility] Last Admin: 09/12/18 03:06 Dose: 100 mls/hr Ibuprofen (Motrin Tab) 400 mg PO Q8H PRN PRN Reason: Headache Last Admin: 09/11/18 14:35 Dose: 400 mg Lamotrigine (Lamictal) 25 mg PO BID [facility] Last Admin: 09/12/18 10:45 Dose: 25 mg Lorazepam (Ativan) 2 mg IVP ONCE PRN PRN Reason: Excess sedation - Labs Labs: 09/10/18 01:03 09/10/18 01:03
--- NOTE | 2018-09-12 14:24 | CARD ---
APPROVED REPORT Date of service: 09/10/2018 EKG Measurement Heart [id number] <Conclusion> Normal sinus rhythm Possible Left atrial enlargement Borderline ECG
--- NOTE | 2018-09-12 14:42 | CP.PCM.PN ---
Subjective - Date & Time of Evaluation Date of Evaluation: 09/12/18 Time of Evaluation: 14:35 - Subjective Subjective: Patient seen and examined Denies cough, denies fever chills, denies chest pain, denies shortness of breath Old records reviewed with persistent right pleural effusion Does not need thoracentesis or any workup at this point from pulmonary standpoint Objective - Vital Signs/Intake and Output Vital Signs (last 24 hours): Temp Pulse Resp BP Pulse Ox 98.1 F 50 L 20 112/73 97 09/12/18 07:00 09/12/18 13:33 09/12/18 07:00 09/12/18 07:00 09/12/18 07:00 Intake and Output: 09/12/18 09/12/18 06:59 18:59 Intake Total 1080 Balance 1080 - Medications Medications: Current Medications Acetaminophen (Tylenol 325mg Tab) 650 mg PO Q6 PRN PRN Reason: Headache Last Admin: 09/12/18 04:13 Dose: 650 mg Heparin Sodium (Porcine) (Heparin) 5,000 units SC Q12 [facility] Last Admin: 09/12/18 09:48 Dose: Not Given Sodium Chloride (Sodium Chloride 0.9%) 1,000 mls @ 100 mls/hr IV .Q10H [facility] Last Admin: 09/12/18 13:25 Dose: Not Given Ibuprofen (Motrin Tab) 400 mg PO Q8H PRN PRN Reason: Headache Last Admin: 09/11/18 14:35 Dose: 400 mg Lamotrigine (Lamictal) 25 mg PO BID [facility] Last Admin: 09/12/18 10:45 Dose: 25 mg Lorazepam (Ativan) 2 mg IVP ONCE PRN PRN Reason: Excess sedation Last Admin: 09/12/18 11:28 Dose: 2 mg - Labs Labs: 09/10/18 01:03 09/10/18 01:03 Assessment and Plan (1) Pleural effusion Status: Acute
--- NOTE | 2018-09-12 15:45 | MRI ---
Date of service: 2018-09-12 12:05:41 PROCEDURE: MRI BRAIN WITH AND WITHOUT CONTRAST HISTORY: Mass COMPARISON: CT head without contrast from 09/10/2018. TECHNIQUE: Multiplanar, multisequence MR images of the brain were obtained with and without intravenous contrast enhancement. 12 ML Omniscan was injected intravenously. FINDINGS: HEMORRHAGE: None DWI: No evidence of an acute or early subacute infarction. BRAIN PARENCHYMA: There is an approximately 2.1 x 2.2 x 1.7 cm mixed signal intensity mass in the sella turcica with expansion of the sella and suprasellar extension of the mass. The mass is predominantly hyperintense on T2 weighted images with layering hypointense signal and mixed intensity on T1 weighted images with hypo and hyperintense components. There is a peripheral enhancing rim and thick nodular enhancement along the left lateral aspect. The mass probably extends into the left cavernous sinus and there is superior displacement of the optic chiasm. The infundibulum is not well visualized. There are normal signal voids in the cavernous carotid arteries. The sphenoid sinus is well aerated. There is a 1.2 x 1.2 cm T1 isointense and T2 hypointense rim enhancing lesion rim enhancement with mild surrounding vasogenic edema and increased magnetic susceptibility on gradient images in the right paramedian posterior occipital lobe. There is no evidence for midline shift. ENHANCEMENT: No abnormal intracranial enhancement. VENTRICLES: There is mild age-related global parenchymal volume loss and proportionate enlargement of the ventricles and cortical sulci. CRANIUM: There is normal bone marrow signal pattern. ORBITS: Grossly unremarkable. PARANASAL SINUSES/MASTOIDS: There is moderate mucosal thickening in the ethmoid air cells and mild mucosal thickening in the remaining paranasal sinuses. There is a small left mastoid effusion. VASCULAR SYSTEM: There are normal signal voids in the larger intracranial arteries. OTHER FINDINGS: None . IMPRESSION: 1. 2.1 x 2.2 x 1.7 cm rim enhancing mixed signal intensity sellar mass with suprasellar extension mass and probable extension in the left cavernous sinus with superior displacement of the optic chiasm. The differential considerations include craniopharyngioma, Rathke's cleft cyst and cystic macroadenoma. 2. 1.2 x 1.2 cm rim enhancing calcified lesion in the right paramedian posterior occipital lobe with mild surrounding vasogenic edema is statistically most compatible with a meningioma.
--- NOTE | 2018-09-12 19:57 | PN ---
DATE: 09/12/2018 ENDOCRINOLOGY FOLLOWUP NOTE LOCATION: Room 661. SUBJECTIVE: This is a 63-year-old male with recent evaluation for visual disturbances and migraine type headaches and evaluated for seizure type disorder and currently being followed closely by Neurology and managed appropriately thereof. He has also been followed closely for metabolic workup and management on a recent pituitary mass lesion shown by CAT scan of the head as noted. The MRI of the brain was undertaken today showed the presence of a 2.1 x 2.2 mass in the sella turcica with expansion of the sellar and suprasellar areas and also superior displacement of the optic chiasm and left cavernous sinus as noted thereof. The differential considerations being either we are dealing with a craniopharyngioma versus Rathke's cleft cyst and/or a cystic macroadenoma. There is also a calcified lesion in the right paramedian occipital lobe area with a possibility also consistent of a meningioma as noted thereof. His comprehensive hormonal profile has been essentially normal with a prolactin level of 9.5, serum cortisol of 16.2 and a TSH of 1.18. ASSESSMENT: This is a 63-year-old male with a sellar mass lesion as described above under diagnostic possibilities also as described, and we are dealing with either a craniopharyngioma versus a cystic macroadenoma which is clearly nonfunctioning with a normal hormonal profile as mentioned. There is also possibility of another meningioma in the occipital area as described above. PLAN OF MANAGEMENT: Would highly recommend a neurosurgical evaluation for more definitive management accordingly. From the endocrine viewpoint, no indications for any hormonal therapy at this time as we are dealing with a nonfunctioning pituitary mass lesion as described. The patient would actually benefit from a transsphenoidal surgical procedure and/or an open craniotomy depending on the evaluation and decision of the neurosurgical experts. We will follow and advise accordingly. Melony Lea MD
--- NOTE | 2018-09-13 00:01 | PN ---
DATE: 09/12/2018 SUBJECTIVE: The patient is seen and examined at bedside. The patient now claiming that he has decreased vision in the right eye. Denies any other new complaints. PHYSICAL EXAMINATION: GENERAL: Middle-aged male, lying in bed, in no acute distress. VITAL SIGNS: Blood pressure 114/72, pulse 72, respirations 20, temperature 98.2 degrees, O2 saturation is 98% on room air. HEENT: Pupils equal, round, and reacting to light and accommodation. Extraocular muscles intact. No icterus. No pallor. No oral thrush. No pharyngeal congestion. NECK: Supple. No JVD. LUNGS: Bilateral vesicular breath sounds. No wheezing. No rhonchi. CARDIOVASCULAR: S1 and S2 present. Regular. ABDOMEN: Soft and nontender. Bowel sounds present. No guarding. No rigidity. No rebound tenderness noted. CENTRAL NERVOUS SYSTEM: Alert, awake, oriented x3. No focal deficits noted. EXTREMITIES: No edema. Palpable peripheral pulses. MEDICATIONS: Include Tylenol as needed, Motrin 400 mg every 8 hours p.r.n., Lamictal 25 mg p.o. b.i.d., Ativan one dose normal saline at 100 mL an hour. ASSESSMENT AND PLAN: Middle-aged male with history of right pleural effusion secondary to tuberculosis, treated more than 20 years ago with four-drug regimen for 9 months. Admitted for possible acute viral gastroenteritis, visual disturbance and right pleural effusion, now the patient is claiming decreased vision in the right eye. Neurology consult and pulmonary consult appreciated. Endocrinology consult appreciated. Awaiting for MRI report. The patient is being started on Lamictal. For electroencephalogram, we will follow up with MRI, and we will consider Neurosurgery after MRI report is available. We will add further recommendations as his clinical course progresses. Discussed with the patient and the patient's son who is at bedside at length and clarified all their questions and concerns. Jenae Rodriguez MD
[2018-09-13] MEDS: Sodium Chloride 0.9% 1,000 ML IV SCH (03:23)
[2018-09-13 03:27] VITALS: O2SAT 97
--- NOTE | 2018-09-13 04:46 | CON ---
DATE: 09/12/2018 ATTENDING PHYSICIAN: Jenae Rodriguez MD REASON FOR THE CONSULTATION: Headache. CHIEF COMPLAINT: The patient was brought in to [facility] with history of visual abnormal sensation and headache. From neurological point of view, I was called in to evaluate him for further management. HISTORY OF PRESENTING ILLNESS: Mr. Lucia Vasquez is an 63-year-old right-handed, well-built [place] male, presenting with since 09/05/2018, he started to have some visual symptoms. Even the eyes closed, he sees flashing lights in front of the visual field mostly on his left upper quadrant region, with these symptoms preceding with some nauseous sensation. This lasted for about two minutes and disappeared on its own. This has been happening at least two or three times per day. No preceding warning symptoms after these symptoms. No focal weakness. No abnormal headache. No neck pain. No history of focal weakness associating with the symptoms. PAST MEDICAL HISTORY: Significant for TB and pleural effusion in the past. PAST SURGICAL HISTORY: He had a nasal septal surgery in the past. FAMILY HISTORY: Significant for coronary artery disease. 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 SOCIAL HISTORY: He quit smoking in 1994 when he was diagnosed with pleural effusion. No history of alcohol use. PHYSICAL EXAMINATION: VITAL SIGNS: Blood pressure 112/73, mean arterial pressure of 86, respiratory rate 18, temperature 98.1, pulse rate 67 and regular. NECK: Supple. No carotid bruit. HEART: Sounds are regular. CHEST: Fair air entry. EXTREMITIES: No edema in legs. NEUROLOGIC EXAMINATION: Mental status examination: He is awake, alert and oriented to person, place and time. Speech is clear. Naming, repetition, fluency, comprehension all within normal. Cranial nerve examination: Visual field intact. Pupil reactive to light. Extraocular movement normal. No nystagmus. No facial sensory deficit. No facial asymmetry. Hearing is normal. Tongue is midline. Good gag. On visual field examination, the patient does have inconsistent numbering the fingers on left upper quadrant region. Motor examination: Outstretched hand with eyes closed, no drift noted. Power is symmetric on either side. Deep tendon reflexes, biceps, brachialis, triceps 2+ on either side. Both knees are 1+. Both ankles are absent. Plantars are downgoing. Sensory examination: The patient does show some extinction to double simultaneous stimuli on his left side to compare with the right side. Coordination: [id number] test is intact. Gait is normal. CONCLUSION: As per neurological examination and reviewing his history from him as well as the medical reports, suggestive of possible right parieto-occipital region dysfunction, which is consistent with extinction to double simultaneous stimuli and visual anopsia of the left upper quadrant. Because of the nature of his symptoms, this is probably a focal seizure. His workup shows in CAT scan calcification of the right occipital region and some cystic swelling in the suprasellar region. EKG: Normal sinus rhythm. Blood workup: WBC 7.6, hemoglobin 12.7, hematocrit 38.6, platelet 235. Sodium 137, potassium 4.1, chloride 104, bicarbonate 27, BUN 22, GFR more than 60, magnesium 1.1. AST 29, ALT 12. RECOMMENDATIONS: 1. MRI of the brain with and without gadolinium to rule out any structural cause at the right occipital region. 2. Considering clinical history, the patient should be on antiepileptic drug. The patient can be benefited on starting low dose of lamotrigine and that dose can be continued and titrate slowly as he tolerates. 3. I doubt the presentation of these symptoms are migraine related. The patient's condition has been discussed with him. The patient will be followed closely with you. Edenilson Gibbs MD
--- NOTE | 2018-09-13 06:45 | CP.PCM.PN ---
Subjective - Date & Time of Evaluation Date of Evaluation: 09/13/18 Time of Evaluation: 06:35 - Subjective Subjective: Aram Bear D.O. PGY-3, Internal Medicine Resident, Endocrinology Progress Note 63 year old male with a PMH of TB s/p treatment and pleural effusions who presents for vision changes. 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 Patient was seen and examined at bedside. Patient resting comfortably. No acute complaints. Objective - Vital Signs/Intake and Output Vital Signs (last 24 hours): Temp Pulse Resp BP Pulse Ox 97.9 F 58 L 20 117/76 97 09/13/18 03:26 09/13/18 03:26 09/13/18 03:26 09/13/18 03:26 09/13/18 03:26 Intake and Output: 09/12/18 09/13/18 18:59 06:59 Intake Total 1080 Output Total 500 Balance 1080 -500 - Medications Medications: Current Medications Acetaminophen (Tylenol 325mg Tab) 650 mg PO Q6 PRN PRN Reason: Headache Last Admin: 09/12/18 19:46 Dose: 650 mg Dexamethasone (Decadron) 4 mg PO Q6H DUDLEY Stop: 09/17/18 06:00 Heparin Sodium (Porcine) (Heparin) 5,000 units SC Q12 DUDLEY Last Admin: 09/12/18 21:05 Dose: Not Given Ibuprofen (Motrin Tab) 400 mg PO Q8H PRN PRN Reason: Headache Last Admin: 09/12/18 17:55 Dose: 400 mg Lamotrigine (Lamictal) 50 mg PO BID DUDLEY Lorazepam (Ativan) 2 mg IVP ONCE PRN PRN Reason: Excess sedation Last Admin: 09/12/18 11:28 Dose: 2 mg - Labs Labs: 09/10/18 01:03 09/10/18 01:03 - Constitutional Appears: Well developed, Non-toxic, No Acute Distress - Head Exam Head Exam: ATRAUMATIC, NORMOCEPHALIC - Eye Exam Eye Exam: EOMI. absent: Scleral icterus - ENT Exam ENT Exam: Mucous Membranes Moist - Neck Exam Neck Exam: Normal Inspection - Respiratory Exam Respiratory Exam: absent: Rales - Cardiovascular Exam Cardiovascular Exam: +S1, +S2 - GI/Abdominal Exam GI & Abdominal Exam: Soft - Neurological Exam Neurological Exam: Alert, Awake - Skin Skin Exam: Dry, Warm Assessment and Plan - Assessment and Plan (Free Text) Assessment: 63 year old male with a PMH of TB s/p treatment and pleural effusions who presents for vision changes. 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 Plan: 1. Incidental pituitary cyst From an endocrine standpoint does not require therapy at this time MRI reviewed, neurosurgery consultation recommended for suprasellar and paramedian occipital lobe lesions We will follow Patient was seen and examined and case to be discussed with attending physician.
[2018-09-13 07:25] LABS: BASO # 0.1 K/uL (0.0-0.2); BASO % 1.1 % (0.0-2.0); EOS # 0.2 K/uL (0.0-0.7); HEMOGLOBIN 11.1 g/dL (12.0-18.0); LYMPH # 1.5 K/uL (1.0-4.3); LYMPH % 27.9 % (20.0-40.0); MEAN CELL VOLUME 94.5 fL (80.0-94.0); MEAN CORPUSCULAR HEMOGLOBIN 30.9 pg (27.0-31.0); MEAN CORPUSCULAR HGB CONC 32.7 g/dL (33.0-37.0); MONO # 0.4 K/uL (0.0-0.8); NEUT # 3.2 K/uL (1.8-7.0); NRBC % 0.1 % (0.0-2.0); RBC 3.59 Mil/uL (4.40-5.90); RED CELL DISTRIBUTION WIDTH 13.4 % (11.5-14.5); WHITE BLOOD COUNT 5.3 K/uL (4.8-10.8)
[2018-09-13 07:43] LABS: ALB/GLOB RATIO 1.3 (1.0-2.1); ALBUMIN 3.1 g/dL (3.5-5.0); ALT/SGPT 16 U/L (21-72); AST/SGOT 22 U/L (17-59); BLOOD UREA NITROGEN 14 mg/dL (9-20); CALCIUM 8.4 mg/dl (8.6-10.4); GFR NON-AFRICAN AMERICAN > 60
--- NOTE | 2018-09-13 10:49 | PN ---
DATE: 09/13/2018 TIME OF EVALUATION: 7:00 a.m. NEUROLOGICAL PROBLEM: Visual seizures secondary to right occipital mass. PHYSICAL EXAMINATION: VITAL SIGNS: Blood pressure 117/76, mean arterial pressure of 89, respiratory rate 16, temperature afebrile, pulse rate 58 and regular. The patient is seen with his son. The patient stated that he did have seizures in the past. He was told some liquid collection in the occipital lobe in 1994, being treated with antiepileptic drugs for about four months and he had a followup with them and the medication was stopped since then. The patient also remembers that he was given Decadron at that time. He was told no surgery was needed, tumor was resolved completely as far as his statement. The current examination, which is unchanged. He also is symptomatically much improved. No new episode has come since he is started on Lamictal. Rest of the examination is unchanged. DIAGNOSTIC DATA: The patient's MRI has been reviewed. 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 However, the current problem is related to his right occipital mass with vasogenic edema. It seems to be dural tail consistent with the meningioma. ASSESSMENT AND PLAN: The patient's recommended electroencephalogram is still pending. Since he has vasogenic edema, the patient is given Decadron for four dose, which can be given as a p.o. The Lamictal dose is increased to 250 mg twice a day. Extensive discussion with him. When medically stable, the patient can be discharged from here and the patient will be seeing me as outpatient for neurosurgical evaluation, probably either gamma knife treatment versus surgical resection. If medically stable, maybe the patient can be discharged tomorrow and should have followup with me as outpatient. Edenilson Gibbs MD
--- NOTE | 2018-09-13 11:10 | CP.PCM.PN ---
Subjective - Date & Time of Evaluation Date of Evaluation: 09/13/18 Time of Evaluation: 11:10 - Subjective Subjective: Discharge summary dictated #[id number] Objective - Vital Signs/Intake and Output Vital Signs (last 24 hours): Temp Pulse Resp BP Pulse Ox 97.5 F L 52 L 20 134/84 97 09/13/18 07:00 09/13/18 07:43 09/13/18 07:00 09/13/18 07:00 09/13/18 07:00 Intake and Output: 09/13/18 09/13/18 06:59 18:59 Intake Total 900 Output Total 500 Balance 400 - Medications Medications: Current Medications Acetaminophen (Tylenol 325mg Tab) 650 mg PO Q6 PRN PRN Reason: Headache Last Admin: 09/12/18 19:46 Dose: 650 mg Dexamethasone (Decadron) 4 mg PO Q6H DUDLEY Stop: 09/17/18 06:00 Last Admin: 09/13/18 06:50 Dose: 4 mg Ibuprofen (Motrin Tab) 400 mg PO Q8H PRN PRN Reason: Headache Last Admin: 09/13/18 09:44 Dose: 400 mg Lamotrigine (Lamictal) 50 mg PO BID DUDLEY Last Admin: 09/13/18 09:44 Dose: 50 mg Lorazepam (Ativan) 2 mg IVP ONCE PRN PRN Reason: Excess sedation Last Admin: 09/12/18 11:28 Dose: 2 mg - Labs Labs: 09/13/18 07:04 09/13/18 07:04
[2018-09-13 16:10] VITALS: BP 132/85; PULSE 67; RESP 18; TEMP 97.7
--- NOTE | 2018-09-14 07:04 | DS ---
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 HISTORY OF PRESENT ILLNESS: Mr. Vasquez is a 63-year-old male with past medical history of tuberculosis, right pleural effusion, status post thoracentesis, admitted for nausea, vomiting, visual disturbances for the past few days prior to admission, and in the ED, the patient was found to be having abnormal CT head and abnormal chest x-ray and the patient was admitted for further evaluation. Today, the patient is feeling better. Denies any headache at the present time. Denies any dizziness. Denies any chest pain, shortness of breath, or wheezing. Denies any nausea, vomiting, abdominal pain, diarrhea, or constipation. Denies any urinary complaints. His visual disturbances has been decreasing. Denies any other new neurologic symptoms. All other symptoms reviewed and was found to be negative. PHYSICAL EXAMINATION: GENERAL: Middle-aged male, lying in bed, in no acute distress. VITAL SIGNS: Blood pressure 132/85, pulse 67, respirations 20, temperature 97.7 degrees Fahrenheit, O2 saturations 97% on room air. HEENT: Pupils are equal, round, and reacting to light and accommodation. Extraocular muscles are intact. No icterus. No pallor. No oral thrush. No pharyngeal congestion. NECK: Supple. No JVD. LUNGS: Bilateral vesicular breath sounds. No wheezing. No rhonchi. CARDIOVASCULAR SYSTEM: S1 and S2 present. Regular. ABDOMEN: Soft and nontender. Bowel sounds are present. No guarding. No rigidity. No rebound tenderness noted. CENTRAL NERVOUS SYSTEM: Alert, awake, and oriented x3. No focal deficits noted. EXTREMITIES: No edema. Palpable peripheral pulses. LABORATORY DATA: From today, WBC 5.3, hemoglobin 11.1, hematocrit 34, and platelets 187. Sodium 138, potassium 4.2, chloride 108, bicarb 26, BUN 14, creatinine 0.8, glucose 94, calcium 8.4, phosphorus 2.5, magnesium 1.7. AST 22, ALT 16, alkaline phosphatase 59, total protein 5.6, albumin 3.1. T4 8.6, TSH 1.18, FSH 5.4, LH is 1.2, prolactin 9.5, cortisol a.m. 15.2. HOSPITAL COURSE: The patient was admitted to the hospital, received IV fluids and his nausea, vomiting improved. He was able to tolerate p.o. feeds. For his right pleural effusion the patient was evaluated by Pulmonary. The patient's family brought his old records. The patient refused to go for repeat CT scan of the chest with contrast. After reviewing the records the pulmonary did not recommend any further workup as the patient was also refusing CT scan of the chest. The patient was found to be having pituitary lesion along with right parietal lesion consistent with possible meningioma with vasogenic edema on MRI. The patient was evaluated by Endocrinology and Neurology. The patient was started on Lamictal and started on dexamethasone. The patient underwent EEG today, and as per Dr. Gibbs, the patient needs further neurosurgical evaluation for his right parietal mass, which could be done as outpatient and he is arranging for further intervention as outpatient. He recommended to continue with Lamictal 50 mg p.o. b.i.d. and dexamethasone 4 mg every 6 hours for four days to decrease the vasogenic edema with which the patient's symptoms are improving. The patient is cleared by pulmonary and endocrine standpoint. As the patient is otherwise stable and is anxious to be discharged, the patient is discharged. Advised the patient to return to the ED if any worsening symptoms. The patient has scheduled appointment with Neurology for further treatment plan and further surgical intervention. Discussed with the patient and the patient's son who are at bedside, clarified all their questions and concerns. The patient understands the need for followup as outpatient and will to follow up with Neurology and Neurosurgery as outpatient. CONDITION UPON DISCHARGE: The patient is awake, alert, and oriented x3 and hemodynamically stable. DISCHARGE INSTRUCTIONS: Follow up with PMD. Follow up with Neurology. Follow up with Neurosurgery as recommended. DIET: Heart healthy diet. ACTIVITY: As tolerated. DISCHARGE MEDICATIONS: Dexamethasone 4 mg p.o. every 6 hours for four days, Lamictal 50 mg p.o. b.i.d., and Protonix 40 mg daily. Advised the patient to return to ED if any worsening of his symptoms. Jenae Rodriguez MD [facility] # [id number]
--- NOTE | 2018-09-14 07:41 | PN ---
DATE: 09/13/2018 ENDOCRINOLOGY FOLLOWUP NOTE LOCATION: Room 661. SUBJECTIVE: This is a 63-year-old admitted with visual disturbances and evaluated for possible visual events and placed on Lamictal as noted. He also CAT scan of the head and now verified also by the MRI of the pituitary area done with and without contrast yesterday as noted. The MRI 2.1 x 2.2 x 1.7 cm mass in the sella turcica with expansion of the sella and suprasellar areas and displacement of the optic chiasma as noted thereof. His comprehensive his prolactin level has been reported as 9.5 with a cortisol level of 15.2, and a TSH of . His LH was 1.2 with FSH of 5.4. LABORATORY DATA: His chemistries showed 22, sodium 137, potassium 4.1, chloride 104, CO2 of 27, glucose 112, and creatinine 0.8. ASSESSMENT AND PLAN: This is a 63-year-old male with a pituitary with multiple sequential diagnostic possibilities of either a trauma or a adenoma. There is also a left sided optical area of trauma recent as noted. PLAN OF MANAGEMENT: The patient's profile is completely normal at this time. There is no indication for any kind of ____ kind of therapy to be initiated otherwise. We will await neurosurgical evaluation for more definitive evaluation and management of decreased pituitary mass . We will follow and advise accordingly. Melony Lea MD
== END 2018-09-13 18:03 | disposition home or self-care (01) | DRG 54 ==
LOC: C.ER 00:28 → C.6T 03:02
PROVIDERS: ADMIT Internal Medicine; ATTEND Internal Medicine
DX: D32.0 Benign neoplasm of cerebral meninges (principal); G93.6 Cerebral edema; J90 Pleural effusion, not elsewhere classified; G40.89 Other seizures; E23.6 Other disorders of pituitary gland; G43.909 Migraine, unspecified, not intractable, without status migrainosus; I10 Essential (primary) hypertension; H54.61 Unqualified visual loss, right eye, normal vision left eye; E78.5 Hyperlipidemia, unspecified; Z86.11 Personal history of tuberculosis; Z87.891 Personal history of nicotine dependence; Z80.8 Family history of malignant neoplasm of other organs or systems; Z82.49 Family history of ischemic heart disease and other diseases of the circulatory system; Z83.3 Family history of diabetes mellitus